=== PATIENT | female | born 1945 | race African-American/Black ===

== ENCOUNTER → 2024-04-18 10:21 | Outpatient (REF) | payer OTHER, SELFPAY | LOC: HWRCS 10:21 | PROVIDERS: ATTENDING PHYSICIAN Internal Medicine; FAMILY PHYSICIAN Family Medicine | DX: R01.1 Cardiac murmur, unspecified (principal) | CPT/HCPCS: 93306 ==

== ENCOUNTER 2024-07-02 16:16 | Emergency (ER) | payer OTHER, SELFPAY ==
[2024-07-02 16:18] VITALS: BP 154/101
--- NOTE | 2024-07-02 16:21 | ED.GENMED ---
ED Provider Triage
<Arley Batista PA-C - Last Filed: 07/02/24 16:24>
-
Patient seen by provider in Triage?: Seen in Triage
78-year-old female with history of hypertension presents with family with complaints of headache elevated blood pressure and jaw pain. She denies chest pain or shortness of breath. This has been ongoing for 2 days. The headache that woke her from
sleep was quite severe 2 nights ago but has improved since then. She is followed by cardiology here. Currently no chest pain.
Vital stable at triage. Will obtain EKG, CBC, CMP, troponin. Secondary to the elevated blood pressure and severe headache CT of the head was ordered
History of Present Illness
<Arley Batista PA-C - Last Filed: 07/02/24 16:24>
General
Chief Complaint: Blood Pressure Problem
Time Seen by Provider: 07/02/24 21:55
<Stone Rodriguez DO - Last Filed: 07/03/24 01:50>
History of Present Illness
History of Present Illness:
TIME OF INITIAL ENCOUNTER: 10 PM
HPI:
Yesterday and today, the patient felt that her heart rate was elevated. Her heart rate was in the 110-120 range persistently. She admits to not drinking fluids all that much but her daughter has encouraged increased p.o. intake. She spoke to
Rebeca's office who encouraged her to come in here for further evaluation. Upon my initial evaluation she feels probably fine and wants to go home. She states that Dr. Jose has her on HCTZ for lower extremity edema.
EXAM:
GENERAL: Well appearing in no distress
HEENT: Moist oral mucosa
CARDIOVASCULAR: No murmurs, normal heart rate (80 on my examination), regular rhythm, No chest wall tenderness
PULMONARY: No respiratory distress, breath sounds are clear and equal
ABDOMEN: Soft with no peritoneal signs, no tenderness
NEUROLOGIC: Excellent strength all extremities, no coordination deficits
PSYCHIATRIC: Appropriate mental status, normal insight and judgement
EXTREMITIES: Nontender, trace if any edema, moves all extremities equally
SKIN: No rash, no lesions
NUMBER AND COMPLEXITY OF PROBLEMS ADDRESSED AT THE ENCOUNTER
� Chronic conditions affecting care: High blood pressure, hyperlipidemia
� Acute Exacerbation and/or Progression of Chronic Illness: This is an acute problem
� Differential Diagnosis includes: Anxiety, nonspecific palpitations, dehydration, MIKE, thyroid disease
AMOUNT AND/OR COMPLEXITY OF DATA TO BE REVIEWED AND ANALYZED
� I performed an independent evaluation of and my interpretation is:
EKG: Sinus 105, left axis deviation, borderline LVH
CT: CAT scan of the brain shows no acute abnormality
X-rays:
Laboratory Studies: White count 12.7, hemoglobin 12.7, chemistries and troponin unremarkable
Other:
� Review of other/old records: The patient had an echo in March which showed an EF of 70 to 75%
� Clinical information was obtained by an independent historian: Discussed case with son at bedside
� Prescriptions/Medications Considered but not given:
� Further testing considered but not performed:
RISK OF COMPLICATIONS AND/OR MORBIDITY OR MORTALITY OF PATIENT MANAGEMENT
� Social determinants of health affecting care: Lives at home
� Discussion with other providers:
� Escalation of care including admission/observation vs risk of discharge considered: Upon my initial evaluation, the patient has no symptoms and is eager to go home. EKG is unremarkable. I have added thyroid testing which was.
She has follow with Dr. Jose on Tuesday.
ANY OTHER UPDATES:
Phy Exam
<Stone Rodriguez DO - Last Filed: 07/03/24 01:50>
Physical Exam
Physical Exam:
See HPI
Course
<Arley Batista PA-C - Last Filed: 07/02/24 16:24>
Orders/Labs/Results
Orders:
Orders
07/02/24 16:18
Electrocardiogram (*1) Urgent
Reason for Study: Chest Pain
EKG- Treatment ONCE
07/02/24 16:20
CT Head W/o Iv Contrast Urgent
Comment:
Reason For Exam: headache
07/02/24 16:34
Complete Blood Count/With Diff Urgent
Comprehensive Metabolic Panel Urgent
TSH Reflex To Free T4 Urgent
Comment: ADD ON
Troponin I Urgent
07/02/24 22:10
Add On- LAB Urgent
Tests Added?: tsh reflex fT4
Abnormal Lab Results
07/02/24
16:34
WBC 12.7 H 10^3/uL
(4.8-10.8)
MCH 26.4 L pg
(27.0-31.0)
MCHC 32.5 L g/dL
(33.0-37.0)
Abs Immat Gran (auto) 0.1 H 10^3/uL
(0-0.05)
Absolute Neuts (auto) 8.1 H 10^3/uL
(1.4-6.5)
Absolute Monos (auto) 1.1 H 10^3/uL
(0.1-0.6)
Glucose 178 H mg/dl
(70-99)
07/02/24 16:34
07/02/24 16:34
Vital Signs
Initial and Last Documented VS:
Initial Vital Signs
Temp Pulse Resp BP Pulse Ox
98.6 F 115 18 154/101 96
07/02/24 16:18 07/02/24 16:18 07/02/24 16:18 07/02/24 16:18 07/02/24 16:18
Last Documented Vital Signs
Temp Pulse Resp BP Pulse Ox
98.4 F 94 20 147/85 96
07/02/24 18:28 07/02/24 22:27 07/02/24 22:27 07/02/24 22:27 07/02/24 22:27
<Stone Noe Michael, DO - Last Filed: 07/03/24 01:50>
Orders/Labs/Results
Orders:
Orders
07/02/24 16:18
Electrocardiogram (*1) Urgent
Reason for Study: Chest Pain
EKG- Treatment ONCE
07/02/24 16:20
CT Head W/o Iv Contrast Urgent
Comment:
Reason For Exam: headache
07/02/24 16:34
Complete Blood Count/With Diff Urgent
Comprehensive Metabolic Panel Urgent
TSH Reflex To Free T4 Urgent
Comment: ADD ON
Troponin I Urgent
07/02/24 22:10
Add On- LAB Urgent
Tests Added?: tsh reflex fT4
Abnormal Lab Results
07/02/24
16:34
WBC 12.7 H 10^3/uL
(4.8-10.8)
MCH 26.4 L pg
(27.0-31.0)
MCHC 32.5 L g/dL
(33.0-37.0)
Abs Immat Gran (auto) 0.1 H 10^3/uL
(0-0.05)
Absolute Neuts (auto) 8.1 H 10^3/uL
(1.4-6.5)
Absolute Monos (auto) 1.1 H 10^3/uL
(0.1-0.6)
Glucose 178 H mg/dl
(70-99)
07/02/24 16:34
07/02/24 16:34
Vital Signs
Initial and Last Documented VS:
Initial Vital Signs
Temp Pulse Resp BP Pulse Ox
98.6 F 115 18 154/101 96
10/14/24 16:18 07/02/24 16:18 07/02/24 16:18 07/02/24 16:18 07/02/24 16:18
Last Documented Vital Signs
Temp Pulse Resp BP Pulse Ox
98.4 F 94 20 147/85 96
07/02/24 18:28 07/02/24 22:27 07/02/24 22:27 07/02/24 22:27 07/02/24 22:27
<Stone Rodriguez DO - Last Filed: 07/03/24 01:50>
*Critical Care Note
Total Time (30-74mins, 75-104mins- exclusive of procedures): Not Applicable
ED Attending Note
<Arley Batista PA-C - Last Filed: 07/02/24 16:24>
-
Portions of this chart may have been created with voice recognition software.� Occasional wrong word or��sound alike� substitutions may have occurred due to the inherent limitations of voice recognition software.
Discharge Plan
Departure
Patient Disposition: Home (Routine Discharge)
Date of Disposition: 07/02/24
Time of Disposition: 22:09
Patient with high blood pressure during this ER visit?: Yes
Discharge Problem:
Palpitations
Instructions: Palpitations
Referrals:
René De La Torre DO [Family Provider] -
Activity Restrictions/Additional Instructions:
Follow-up with Dr. Jose. Return here if worse or any other concerns.
Interventions
Interventions:
*Risk Screen - Suicide Last Done: 07/02/24 16:18
*General Assessment Last Done: 07/02/24 16:18
*Neglect/Abuse Screening Last Done: 07/02/24 16:18
*ED COVID-19 Vaccine History Last Done: 07/02/24 16:18
*Nursing Disposition Last Done: 07/02/24 22:35
ED- Cardiac Assessment Last Done: 07/02/24 21:13
ED- Neurological Assessment Last Done: 07/02/24 21:13
ED- Pulmonary Assessment Last Done: 07/02/24 21:13
Discharge Date and Time
Discharge Date/Time: 07/02/24 22:36
Print Language: [place]
[2024-07-02 17:03] LABS: % Basophils 0.2 % (0-2); % Eosinophils 0.3 % (0-6); % Immature Granulocytes 0.5 % (0-0.5); % Lymphocytes 26.8 % (20.5-51.1); % Monocytes 8.3 % (1.7-9.3); % Neutrophils 63.9 % (42.2-75.2); Absolute Immature Granulocytes 0.1 10^3/uL (0-0.05); Absolute Lymphocytes 3.4 10^3/uL (1.2-3.4); Absolute Monocytes 1.1 10^3/uL (0.1-0.6); Absolute Neutrophils 8.1 10^3/uL (1.4-6.5); Hematocrit 39.1 % (37.0-47.0); Hemoglobin 12.7 g/dL (12.0-16.0); Mean Corp Hgb Conc. 32.5 g/dL (33.0-37.0); Mean Corpuscular Hgb 26.4 pg (27.0-31.0); Mean Corpuscular Volume 81.3 fL (81.0-99.0); Mean Platelet Volume 10.4 fL (7.4-10.4); Nucleated Red Blood Cells % 0 %; Platelet Count 248 10^3/uL (130-400); Red Blood Cell Count 4.81 10^6/uL (4.20-5.40); Red Cell Dist. Width 14.2 % (11.5-14.5); White Blood Cell Count 12.7 10^3/uL (4.8-10.8)
[2024-07-02 17:10] LABS: ALT (SGPT) 17 U/L (0-35); AST (SGOT) 23 U/L (14-36); Albumin 4.3 g/dl (3.5-5.0); Alkaline Phosphatase 89 U/L (38-126); Blood Urea Nitrogen 16 mg/dl (7-17); Calcium 9.7 mg/dl (8.4-10.2); Carbon Dioxide 27 mmol/L (22-30); Chloride 99 mmol/L (98-107); Glucose 178 mg/dl (70-99); Potassium 4.1 mmol/L (3.5-5.1); Sodium 140 mmol/L (135-145); Total Bilirubin 0.4 mg/dl (0.2-1.3); Total Protein 7.7 g/dl (6.3-8.2); eGFR 58.39
[2024-07-02 17:20] LABS: Troponin I < 0.012 ng/ml
[2024-07-02 18:28] VITALS: BP 122/85
[2024-07-02 20:00] VITALS: BP 134/85
[2024-07-02 22:27] VITALS: BP 147/85
[2024-07-02 23:24] LABS: TSH Reflex To Free T4 1.35 uIU/ml (0.47-4.68)
== END 2024-07-02 22:36 | disposition home or self-care (01) ==
LOC: EMR 16:16
PROVIDERS: Physician Assistant; EMERGENCY PHYSICIAN Emergency Medicine; FAMILY PHYSICIAN Family Medicine
DX: R00.2 Palpitations (principal); I10 Essential (primary) hypertension
CPT/HCPCS: 99285; 70450; 80053; 84443; 84484; 85025; 93005

== ENCOUNTER → 2024-07-04 10:20 | Outpatient (REF) | payer OTHER, SELFPAY ==
[2024-07-04 12:33] LABS: Urine Albumin Negative (Neg - Trace); Urine Bilirubin Negative (Negative); Urine Character Clear (Clear); Urine Color Yellow; Urine Glucose Negative (Negative); Urine Ketone Negative (Negative); Urine Leukocyte Negative (Negative); Urine Nitrite Negative (Negative); Urine Occult Blood Negative (Negative); Urine Urobilinogen Negative (Neg - 1+)
== END ==
LOC: HWLAB 10:20
PROVIDERS: ATTENDING PHYSICIAN Internal Medicine; FAMILY PHYSICIAN Family Medicine
DX: R00.0 Tachycardia, unspecified (principal)
CPT/HCPCS: 81003

== ENCOUNTER → 2024-10-03 15:58 | Outpatient (REF) | payer OTHER, SELFPAY ==
[2024-10-03 17:00] LABS: % Basophils 0.3 % (0-2); % Immature Granulocytes 0.5 % (0-0.5); % Lymphocytes 19.3 % (20.5-51.1); % Monocytes 7.1 % (1.7-9.3); % Neutrophils 72.8 % (42.2-75.2); ALT (SGPT) 16 U/L (0-35); AST (SGOT) 24 U/L (14-36); Absolute Basophils 0.1 10^3/uL (0-0.2); Absolute Immature Granulocytes 0.1 10^3/uL (0-0.05); Absolute Lymphocytes 2.9 10^3/uL (1.2-3.4); Absolute Monocytes 1.1 10^3/uL (0.1-0.6); Albumin 4.2 g/dl (3.5-5.0); Alkaline Phosphatase 83 U/L (38-126); Blood Urea Nitrogen 18 mg/dl (7-17); Calcium 9.5 mg/dl (8.4-10.2); Carbon Dioxide 30 mmol/L (22-30); Chloride 102 mmol/L (98-107); Glucose 143 mg/dl (70-99); Hematocrit 36.5 % (37.0-47.0); Hemoglobin 10.9 g/dL (12.0-16.0); Iron 44 ug/dl (37-170); Mean Corp Hgb Conc. 29.9 g/dL (33.0-37.0); Mean Corpuscular Hgb 26.7 pg (27.0-31.0); Mean Corpuscular Volume 89.2 fL (81.0-99.0); Mean Platelet Volume 11.8 fL (7.4-10.4); Nucleated Red Blood Cells % 0 %; Platelet Count 265 10^3/uL (130-400); Potassium 3.9 mmol/L (3.5-5.1); Red Blood Cell Count 4.09 10^6/uL (4.20-5.40); Red Cell Dist. Width 14.6 % (11.5-14.5); Sodium 143 mmol/L (135-145); Total Bilirubin 0.4 mg/dl (0.2-1.3); White Blood Cell Count 15.1 10^3/uL (4.8-10.8); eGFR 58.02
[2024-10-03 17:09] LABS: Percent Saturation 18 % (20-50); Total Iron Binding Capacity 242 ug/dl (265-497)
[2024-10-03 17:30] LABS: TSH 1.13 uIU/ml (0.47-4.68)
[2024-10-03 17:49] LABS: Vitamin B12 443 pg/ml (239-931)
== END ==
LOC: CLAB 15:58
PROVIDERS: ATTENDING PHYSICIAN Family Medicine
DX: E11.69 Type 2 diabetes mellitus with other specified complication (principal); R53.83 Other fatigue; D64.9 Anemia, unspecified
CPT/HCPCS: 36415; 80053; 82607; 82728; 83540; 83550; 84443; 85025

== ENCOUNTER 2024-10-03 20:45 | Emergency (ER) | payer OTHER, SELFPAY ==
[2024-10-03 20:47] VITALS: BP 143/82
--- NOTE | 2024-10-03 20:54 | ED.GENMED ---
History of Present Illness
<SUNITA Juares - Last Filed: 10/04/24 01:08>
General
Chief Complaint: Abnormal Lab Value
Source: patient
Exam Limitations: none
Time Seen by Provider: 10/03/24 22:27
History of Present Illness
History of Present Illness:
This is a 79 year old female that comes in with c/o abnormal labs. States that she just has not been feeling herself. State that she was lethargic. States that she went to see the PCP and he did blood work. States that he said her Hgb was low.
Patient states that she occasionally has blood in her stool. States that it is when she wipes and it is bright red blood. States that she as told that she has Internal hemorrhoids. Denies any fever, chills, chest pain, SOB, abd pain,
nausea,vomiting, diarrhea, headache, dizziness, urinary burning.
Past History
<SUNITA Juares - Last Filed: 10/04/24 01:08>
Past History
ED Past Medical History: HTN, Hypercholesterolemia, NIDDM and Other (UTI, )
ED Past Surgical History: Orthopedic (Prasahnt knee surgery, Right ring finger surgery)
Social History
Tobacco: Non-smoker
Alcohol: None
Personal:
Living: alone
Review of Systems
<SUNITA Juares - Last Filed: 10/04/24 01:08>
Review of Systems
All Other Systems: ROS reviewed and negative except as documented in HPI and ROS
Constitutional: Reports no symptoms; Denies fever or chills
EENT: Reports no symptoms
Respiratory: Reports no symptoms; Denies cough or trouble breathing
Cardiac: Reports no symptoms; Denies chest pain
ABD/GI: Reports bloody stools (Occasional bright red bleeding when she wipes); Denies abdominal pain, nausea, vomiting or diarrhea
: Reports no symptoms; Denies dysuria, frequency or urgency
Musculoskeletal: Reports no symptoms
Skin: Reports no symptoms
Neurological: Reports no symptoms; Denies dizzy or headache
Psychiatric: Reports no symptoms
Phy Exam
<SUNITA Juares - Last Filed: 10/04/24 01:08>
General Physical Exam
General Presentation: well appearing and no apparent distress
General age: appears stated age
General Skin: warm and dry
General Habitus: elderly
General Mental: alert
General Hydration: dry mucous membranes
ENT Exam
ENT Exam: TM's normal, pharynx normal and neck supple
Eye Exam
Eye Exam: EOMI
Cardiovascular Exam
Cardiovascular Exam: regular rate/rhythm, no edema, no murmur and normal peripheral pulses
Pulmonary Exam
Pulmonary Exam: lungs clear, no respiratory distress, no rales, chest non tender, no crackles, no rhonchi, no wheezing and no cough
Gastrointestinal Exam
Gastrointestinal Exam: normal bowel sounds, soft, no organomegaly, no pulsatile mass, non distended, tender (Slight left sided tenderness with palpation) and other (Stool brown, hem negative )
Musculoskeletal Exam
Musculoskeletal Exam: full ROM and no edema
Skin Exam
Skin Exam: normal color, warm/dry, no rash and no petechia
Psychiatric Exam
Psychiatric Exam: normal mood/affect
Course
<SUNITA Juares - Last Filed: 10/04/24 01:08>
Orders/Labs/Results
Orders:
Orders
10/03/24 21:34
Complete Blood Count/With Diff Urgent
10/03/24 22:39
CT Abd/pelvis W Iv Cont Urgent
Comment:
Reason For Exam: occasionlly blood stool, left sided abd tenderness
10/03/24 22:40
0.9% Sodium Chloride 1000 ml [Nss] 1,000 ml IV BOLUS
10/03/24 23:02
Comprehensive Metabolic Panel Urgent
Abnormal Lab Results
10/03/24 10/03/24
21:34 23:02
WBC 14.0 H 10^3/uL
(4.8-10.8)
RBC 4.19 L 10^6/uL
(4.20-5.40)
Hgb 11.0 L g/dL
(12.0-16.0)
Hct 35.3 L %
(37.0-47.0)
MCH 26.3 L pg
(27.0-31.0)
MCHC 31.2 L g/dL
(33.0-37.0)
Abs Immat Gran (auto) 0.1 H 10^3/uL
(0-0.05)
Absolute Neuts (auto) 9.2 H 10^3/uL
(1.4-6.5)
Absolute Monos (auto) 1.2 H 10^3/uL
(0.1-0.6)
Immature Gran % 0.8 H %
(0-0.5)
BUN 19 H mg/dl
(7-17)
Glucose 137 H mg/dl
(70-99)
10/03/24 21:34
10/03/24 23:02
Leukocytosis, H/H slightly low. Anemic, Dehydration, Hyperglycemia.
Vital Signs
Initial and Last Documented VS:
Initial Vital Signs
Temp Pulse Resp BP Pulse Ox
97.6 F 107 18 143/82 98
10/03/24 20:47 10/03/24 20:47 10/03/24 20:47 10/03/24 20:47 10/03/24 20:47
Last Documented Vital Signs
Temp Pulse Resp BP Pulse Ox
97.6 F 91 25 127/69 99
10/03/24 20:47 10/03/24 23:15 10/03/24 23:15 10/04/24 00:00 10/04/24 00:00
<Jad Maharaj, DO - Last Filed: >
Orders/Labs/Results
Orders:
Orders
10/03/24 21:34
Complete Blood Count/With Diff Urgent
10/03/24 22:39
CT Abd/pelvis W Iv Cont Urgent
Comment:
Reason For Exam: occasionlly blood stool, left sided abd tenderness
10/03/24 22:40
0.9% Sodium Chloride 1000 ml [Nss] 1,000 ml IV BOLUS
10/03/24 23:02
Comprehensive Metabolic Panel Urgent
Abnormal Lab Results
10/03/24 10/03/24
21:34 23:02
WBC 14.0 H 10^3/uL
(4.8-10.8)
RBC 4.19 L 10^6/uL
(4.20-5.40)
Hgb 11.0 L g/dL
(12.0-16.0)
Hct 35.3 L %
(37.0-47.0)
MCH 26.3 L pg
(27.0-31.0)
MCHC 31.2 L g/dL
(33.0-37.0)
Abs Immat Gran (auto) 0.1 H 10^3/uL
(0-0.05)
Absolute Neuts (auto) 9.2 H 10^3/uL
(1.4-6.5)
Absolute Monos (auto) 1.2 H 10^3/uL
(0.1-0.6)
Immature Gran % 0.8 H %
(0-0.5)
BUN 19 H mg/dl
(7-17)
Glucose 137 H mg/dl
(70-99)
10/03/24 21:34
10/03/24 23:02
Vital Signs
Initial and Last Documented VS:
Initial Vital Signs
Temp Pulse Resp BP Pulse Ox
97.6 F 107 18 143/82 98
10/03/24 20:47 10/03/24 20:47 10/03/24 20:47 10/03/24 20:47 10/03/24 20:47
Last Documented Vital Signs
Temp Pulse Resp BP Pulse Ox
97.6 F 91 25 127/69 99
10/03/24 20:47 10/03/24 23:15 10/03/24 23:15 10/04/24 00:00 10/04/24 00:00
<USNITA Juares - Last Filed: 10/04/24 01:08>
MDM/Problems Addressed
Differential Diagnosis Includes:
Colitis, Anemia, Hemorrhoidal bleeding
MDM/Problems Addressed:
This is a 79 year old female that comes in with c/o abnormal labs and occasional rectal bleeding. States that the PCP did not like her labs and sent her in.
Will check labs, CT scan, IV fluids.
Back into see patient. Explained that she has diverticulitis. Will place patient on Augmentin. Patient to follow up with the family doctor. Patient states that she has an appointment with the Colorectal specialist tomorrow at 2:30pm. Patient will
call to see if they still want to see patient. Patient to return with increased bleeding or any other concerns.
Chronic conditions affecting care:
hemorrhoids
Acute Exacerbation and/or Progression of Chronic Illness:
NA
<SUNITA Juares - Last Filed: 10/04/24 01:08>
*Radiology
Radiology exam reviewed: radiology read reviewed (CT night hawk- Extensive sigmoid and left colonic diverticulosis. Multple additional colonic diverticula. There is mild fat stranding and wall thickening of the mid sigmoid colon, Image 65 of series
201. There is mild adjacent fat stranding and adjacent subcentimeter lymph nodes in the sigmoid), all reviewed NAD by ED Provider (CT cont- sigmoid mesentery, probably related to mild acute diverticulitis. NO abscess or free air. Small hiatal
hernia. Stomach is decompressed. Subcentimeter cyst at the anterior right hepatic dome. Normal gallbladder. No biliary dilation. No hydronephrosis or obstructing urinary calculi. Small ) and other (CT cont- small bilateral renal cysts. Bladder is
normal. Pessary. Hysterectomy. Mild atelectasis at the lung bases. Moderate degenerative changes within the spine. )
*Pulse Oximetry
Patient hypoxic: no
*EKG
Interpreted by ED Provider?: NA
Rate: EKG- N/A
*Critical Care Note
Total Time (30-74mins, 75-104mins- exclusive of procedures): Not Applicable
ED Attending Note
<Jad Maharaj DO - Last Filed: >
-
Portions of this chart may have been created with voice recognition software.� Occasional wrong word or��sound alike� substitutions may have occurred due to the inherent limitations of voice recognition software.
Discharge Plan
Departure
Patient Disposition: Home (Routine Discharge)
Date of Disposition: 10/04/24
Time of Disposition: 00:59
Patient with high blood pressure during this ER visit?: No
Condition: Good
Covid-19: Not Applicable
Discharge Problem:
Diverticulitis
Instructions: Diverticulitis - Discharge instructions
Prescriptions:
New
amoxicillin-pot clavulanate 875-125 mg tablet
1 tab PO BID Qty: 19 0RF
Referrals:
René De La Torre DO [Family Provider] - Call in 1-3 days for appt
Activity Restrictions/Additional Instructions:
As discussed, your blood work shows that your White blood cell count is elevated. This goes along with the fact that you have Diverticulitis on the CT scan. You have been given your first dose of antibiotic here. A prescription has been sent to your
pharmacy. You are a little anemic and a little Dehydration. Please increase your water intake to 8-8oz glasses daily. Follow up with Colorectal as directed and your family doctor for recheck. IF YOU HAVE INCREASED OR CHANGING ABD PAIN, FEVER, OR YOU
HAVE ANY OTHRE CONCERNS PLEASE RETURN TO THE EMERGENCY ROOM
Interventions
Interventions:
*Risk Screen - Suicide Last Done: 10/03/24 22:46
*General Assessment Last Done: 10/03/24 20:47
*Neglect/Abuse Screening Last Done: 10/03/24 22:46
ED- Fall Risk Assessment Last Done: 10/03/24 22:24
*ED COVID-19 Vaccine History Last Done: 10/03/24 20:47
Discharge Date and Time
Print Language: [place] CITIZ[place]
[2024-10-03 22:27] VITALS: BP 119/70
[2024-10-03 22:28] VITALS: BMI 32.0
[2024-10-03] MEDS: NSS 1000 IV (22:43)
[2024-10-03 23:00] VITALS: BP 113/69
[2024-10-03 23:01] LABS: % Basophils 0.1 % (0-2); % Eosinophils 0.3 % (0-6); % Immature Granulocytes 0.8 % (0-0.5); % Lymphocytes 24.4 % (20.5-51.1); % Monocytes 8.2 % (1.7-9.3); % Neutrophils 66.2 % (42.2-75.2); Absolute Immature Granulocytes 0.1 10^3/uL (0-0.05); Absolute Lymphocytes 3.4 10^3/uL (1.2-3.4); Absolute Monocytes 1.2 10^3/uL (0.1-0.6); Absolute Neutrophils 9.2 10^3/uL (1.4-6.5); Hematocrit 35.3 % (37.0-47.0); Mean Corp Hgb Conc. 31.2 g/dL (33.0-37.0); Mean Corpuscular Hgb 26.3 pg (27.0-31.0); Mean Corpuscular Volume 84.2 fL (81.0-99.0); Mean Platelet Volume 10.1 fL (7.4-10.4); Nucleated Red Blood Cells % 0 %; Platelet Count 243 10^3/uL (130-400); Red Blood Cell Count 4.19 10^6/uL (4.20-5.40); Red Cell Dist. Width 14.4 % (11.5-14.5)
[2024-10-03 23:20] LABS: ALT (SGPT) 15 U/L (0-35); AST (SGOT) 27 U/L (14-36); Alkaline Phosphatase 77 U/L (38-126); Blood Urea Nitrogen 19 mg/dl (7-17); Carbon Dioxide 26 mmol/L (22-30); Chloride 101 mmol/L (98-107); Estimated Creatinine Clearance 53 ml/min; Glucose 137 mg/dl (70-99); Sodium 138 mmol/L (135-145); Total Bilirubin 0.5 mg/dl (0.2-1.3); Total Protein 7.6 g/dl (6.3-8.2); eGFR > 60.00
[2024-10-04] VITALS: BP 127/69
[2024-10-04] MEDS: AUGMENTIN 875 MG/125 MG 1 TABLET PO (01:05)
== END 2024-10-04 01:27 | disposition home or self-care (01) ==
LOC: EMR 20:45
PROVIDERS: Clinical Nurse Specialist Family Health; Emergency Medicine; EMERGENCY PHYSICIAN Emergency Medicine; FAMILY PHYSICIAN Family Medicine
DX: K57.92 Diverticulitis of intestine, part unspecified, without perforation or abscess without bleeding (principal); I10 Essential (primary) hypertension; E78.00 Pure hypercholesterolemia, unspecified; E11.65 Type 2 diabetes mellitus with hyperglycemia; D64.9 Anemia, unspecified; E86.0 Dehydration; Z87.440 Personal history of urinary (tract) infections
CPT/HCPCS: 99284; 96360; 74177; 80053; 85025; Q9967

== ENCOUNTER → 2025-03-08 08:31 | Outpatient (REF) | payer OTHER, SELFPAY | LOC: RCS 08:31 | PROVIDERS: ATTENDING PHYSICIAN Internal Medicine; FAMILY PHYSICIAN Family Medicine | DX: I10 Essential (primary) hypertension (principal); E78.2 Mixed hyperlipidemia; E11.9 Type 2 diabetes mellitus without complications; R06.09 Other forms of dyspnea | CPT/HCPCS: 78452; 93017; A9500; J2785 ==

== ENCOUNTER → 2025-09-16 10:17 | Outpatient (REF) | payer OTHER, SELFPAY | LOC: HWRCS 10:17 | PROVIDERS: ATTENDING PHYSICIAN Internal Medicine; FAMILY PHYSICIAN Family Medicine | DX: I36.1 Nonrheumatic tricuspid (valve) insufficiency (principal) | CPT/HCPCS: 93306 ==